=== PATIENT | male | born 1980 | race Caucasian/White ===

== ENCOUNTER 2020-01-29 12:42 | Emergency (ER) | payer MEDICAID ==
[~2020-01-29] VITALS: Ht 177.8 cm; Wt 93.6 kg
[~2020-01-29 12:42] MED LIST: ALPR-624 PO; CYCL5TAB PO; FLUO40CA10 PO; HYDR-4353 PO; IBUP-1985 PO; OXYC-150 PO
--- NOTE | 2020-01-29 12:56 | NUR ---
pt refused blood work till he gets to a room due to him stating he gets sick when he gets blood drawn.
[2020-01-29 13:47] LABS: BASOPHILS % (AUTO) 0.3 % (0-1); EOSINOPHILS # (AUTO) 0.1 X10'3 (0-0.9); EOSINOPHILS % (AUTO) 2.1 % (0-6); HEMOGLOBIN 15.6 g/dl (14.0-17.9); LYMPHOCYTES # (AUTO) 1.2 X10'3 (1.1-4.8); LYMPHOCYTES % (AUTO) 31.1 % (21-51); MEAN CORPUSCULAR HEMOGLOBIN 31.8 PG (27.0-31.0); MEAN CORPUSCULAR HGB CONC 35.5 g/dL (33.0-36.5); MEAN CORPUSCULAR VOLUME 89.6 FL (78-98); MEAN PLATELET VOLUME 7.6 FL (7.4-10.4); MONOCYTES # (AUTO) 0.4 X10'3 (0-0.9); MONOCYTES % (AUTO) 9.1 % (2-12); NEUTROPHILS # (AUTO) 2.3 X10'3 (1.8-7.7); NEUTROPHILS % (AUTO) 57.4 % (42-75); PLATELET COUNT 240 X10'3 (140-440); RED BLOOD COUNT 4.91 X10'6 (4.70-6.10); RED CELL DISTRIBUTION WIDTH 13.3 % (11.5-14.5); WHITE BLOOD COUNT 3.9 X10'3 (4.5-11.0)
[2020-01-29 14:00] LABS: ALANINE AMINOTRANSFERASE 63 U/L (12-78); ALBUMIN 4.2 G/DL (3.4-5.0); ALBUMIN/GLOBULIN RATIO 1.5 (1.1-1.5); ALKALINE PHOSPHATASE 65 IU/L (46-116); ANION GAP 8 (8-16); ASPARTATE AMINO TRANSFERASE 31 U/L (10-37); BILIRUBIN,TOTAL 0.6 MG/DL (0.1-1.0); BLOOD UREA NITROGEN 14 MG/DL (7-18); BUN/CREATININE RATIO 14.1 (5.4-32.0); CALCIUM 8.6 MG/DL (8.5-10.1); CHLORIDE 105 MMOL/L (99-107); CREATININE 0.99 MG/DL (0.60-1.10); GLUCOSE 100 MG/DL (70-104); SODIUM 142 MMOL/L (135-145); TOTAL CARBON DIOXIDE 28.7 MMOL/L (24-32); eGFR 84 ML/MIN
[2020-01-29 14:33] VITALS: BP 149/83
== END 2020-01-29 14:34 | disposition home or self-care (01) ==
LOC: ER 12:43
DX: R07.89 Other chest pain (principal); F41.9 Anxiety disorder, unspecified; G89.29 Other chronic pain; F12.90 Cannabis use, unspecified, uncomplicated; F17.200 Nicotine dependence, unspecified, uncomplicated; Z56.0 Unemployment, unspecified; Z79.899 Other long term (current) drug therapy
CPT/HCPCS: 36415; 71045; 80053; 84484; 85025; 93005; 99285

== ENCOUNTER 2021-10-10 15:49 | Emergency (ER) | payer MEDICAID ==
[~2021-10-10] VITALS: Ht 177.8 cm; Wt 95.5 kg
[2021-10-10 16:05] VITALS: BP 157/105
[2021-10-10] MEDS ORDERED: LIDOcaine 1% 30ml preserv. free vial IJ ONE (20:20)
[2021-10-10] MEDS ORDERED: CEPH-585 PO (21:02)
== END 2021-10-10 21:06 | disposition home or self-care (01) ==
LOC: ER 15:51
DX: S60.012A Contusion of left thumb without damage to nail, initial encounter (principal); M79.645 Pain in left finger(s); G89.29 Other chronic pain; F12.90 Cannabis use, unspecified, uncomplicated; Z56.0 Unemployment, unspecified; Z72.89 Other problems related to lifestyle; Z87.442 Personal history of urinary calculi; Z79.2 Long term (current) use of antibiotics; Z79.899 Other long term (current) drug therapy; W23.1XXA Caught, crushed, jammed, or pinched between stationary objects, initial encounter; Y93.89 Activity, other specified; Y92.59 Other trade areas as the place of occurrence of the external cause; Y99.0 Civilian activity done for income or pay
CPT/HCPCS: 20552; 73140; 99284

== ENCOUNTER 2021-12-14 08:11 | Emergency (ER) | payer MEDICAID ==
[~2021-12-14] VITALS: Ht 177.8 cm; Wt 95.0 kg
[2021-12-14 08:17] VITALS: BP 144/101
--- NOTE | 2021-12-14 11:35 | NUR ---
pt seen walking out of ed, unable to locate in restrooms or lobby. pt did not have arm splint placed. provider made aware.
== END 2021-12-14 12:05 | disposition home or self-care (01) ==
LOC: ER 08:13
DX: M25.522 Pain in left elbow (principal); G89.29 Other chronic pain; F41.9 Anxiety disorder, unspecified; F12.90 Cannabis use, unspecified, uncomplicated; Z87.442 Personal history of urinary calculi; Z98.890 Other specified postprocedural states; Z72.89 Other problems related to lifestyle; Z79.899 Other long term (current) drug therapy
CPT/HCPCS: 29105; 73080; 99283

== ENCOUNTER 2022-08-21 11:42 | Observation (INO) | payer MEDICAID ==
[~2022-08-21] VITALS: Ht 177.8 cm; Wt 94.1 kg
[2022-08-21 12:05] LABS: BASOPHILS % (AUTO) 0.4 % (0-1); EOSINOPHILS # (AUTO) 0.1 X10'3 (0-0.9); EOSINOPHILS % (AUTO) 1.9 % (0-6); HEMATOCRIT 42.7 % (42.0-52.0); HEMOGLOBIN 15.1 g/dl (14.0-17.9); LYMPHOCYTES # (AUTO) 2.6 X10'3 (1.1-4.8); LYMPHOCYTES % (AUTO) 52.1 % (21-51); MEAN CORPUSCULAR HEMOGLOBIN 31.4 PG (27.0-31.0); MEAN CORPUSCULAR HGB CONC 35.4 g/dL (33.0-36.5); MEAN CORPUSCULAR VOLUME 88.6 FL (78-98); MEAN PLATELET VOLUME 7.3 FL (7.4-10.4); MONOCYTES # (AUTO) 0.4 X10'3 (0-0.9); MONOCYTES % (AUTO) 8.4 % (2-12); NEUTROPHILS # (AUTO) 1.9 X10'3 (1.8-7.7); NEUTROPHILS % (AUTO) 37.2 % (42-75); PLATELET COUNT 241 X10'3 (140-440); RED BLOOD COUNT 4.81 X10'6 (4.70-6.10); RED CELL DISTRIBUTION WIDTH 13.1 % (11.5-14.5); WHITE BLOOD COUNT 5.1 X10'3 (4.5-11.0)
[2022-08-21 12:13] LABS: ALANINE AMINOTRANSFERASE 72 U/L (12-78); ALBUMIN 4.2 G/DL (3.4-5.0); ALBUMIN/GLOBULIN RATIO 1.4 (1.1-1.5); ALKALINE PHOSPHATASE 70 IU/L (46-116); ANION GAP 10 (8-16); ASPARTATE AMINO TRANSFERASE 34 U/L (10-37); BILIRUBIN,TOTAL 0.8 MG/DL (0.1-1.0); BLOOD UREA NITROGEN 14 MG/DL (7-18); BUN/CREATININE RATIO 15.7 (5.4-32.0); CALCIUM 9.2 MG/DL (8.5-10.1); CHLORIDE 101 MMOL/L (99-107); CREATININE 0.89 MG/DL (0.60-1.10); GLUCOSE 154 MG/DL (70-104); POTASSIUM 3.6 MMOL/L (3.5-5.1); SODIUM 138 MMOL/L (135-145); TOTAL CARBON DIOXIDE 26.6 MMOL/L (24-32); TOTAL PROTEIN 7.1 G/DL (6.4-8.2); eGFR > 90 ML/MIN
[2022-08-21 13:22] LABS: TOTAL CELLS COUNTED 100
[2022-08-21 13:25] LABS: PLATELET ESTIMATE NORMAL
[2022-08-21] MEDS ORDERED: magnesium 4gm in 100ml NS 100 ML IV PRN (13:35)
[2022-08-21] MEDS ORDERED: acetaminophen 325mg tablet PO PRN (13:35)
[2022-08-21] MEDS ORDERED: nitroGLYCERIN 0.4mg SUBLingual tab SL PRN (13:35)
[2022-08-21] MEDS ORDERED: ondansetron/PF 4mg/2ml inj IV PRN (13:35)
[2022-08-21] MEDS ORDERED: potassium Cl 40MEQ/1/2NS 520ml 520 ML IV PRN (13:35)
[2022-08-21] MEDS ORDERED: normal saline 1000ml 1,000 ML IV SCH (13:35)
[2022-08-21] MEDS ORDERED: mag hydrox/Alum hydrox/simeth 30ml oral suspension PO PRN (13:35)
[2022-08-21] MEDS ORDERED: PERFLUTREN PROTEIN-A MICROSPHR (Optison) 0.22 MG/ML 3ML VIAL IV ONE (13:35)
[2022-08-21] MEDS ORDERED: magnesium hydroxide 30ml (MOM) UD suspension PO PRN (13:35)
[2022-08-21] MEDS ORDERED: potassium Cl 20 mEq SR tablet PO PRN ×2 (13:35)
[2022-08-21] MEDS ORDERED: magnesium Cl slow-release 64mg tablet PO PRN (13:35)
[2022-08-21] MEDS ORDERED: regadenoson 0.4mg/5ml syringe IV PRN (13:35)
[2022-08-21] MEDS ORDERED: morphine 2 MG/ML inj. syringe IV PRN ×2 (13:35)
[2022-08-21] MEDS ORDERED: metoprolol tartrate 1mg/ml inj IV PRN (13:35)
[2022-08-21] MEDS ORDERED: aminophylline 500mg/20ml vial IV PRN (13:35)
--- NOTE | 2022-08-21 14:24 | NUR ---
PT is stable and able to nuclear med. VSS. No s/s of distress
[2022-08-21 14:25] LABS: MAGNESIUM 1.8 MG/DL (1.5-2.4); POTASSIUM 3.6 MMOL/L (3.5-5.1)
[2022-08-21 16:00] VITALS: BP 130/84
[2022-08-21] MEDS ORDERED: CLOT30CR19 TOP (17:22)
[2022-08-21] MEDS ORDERED: ESCI20TA39 PO (17:23)
[2022-08-21] MEDS ORDERED: METF-1203 PO (17:23)
[2022-08-21] MEDS ORDERED: MULT-1085 PO (17:26)
[2022-08-21] MEDS ORDERED: ASPI-147 PO (17:27)
[2022-08-21] MEDS ORDERED: docusate sod 100mg capsule PO SCH (20:00)
[2022-08-21] MEDS ORDERED: K and/or MAG REPLACEMENT MC SCH (20:00)
[2022-08-21] MEDS ORDERED: enoxaparin 30mg/0.3ml syringe SQ SCH (20:00)
== END 2022-08-21 17:14 | disposition left against medical advice (07) ==
LOC: ER 11:42 → ED HOLD 13:35
PROVIDERS: ADMIT Family Medicine; ATTEND Family Medicine
DX: R07.89 Other chest pain (principal); E11.9 Type 2 diabetes mellitus without complications; E78.5 Hyperlipidemia, unspecified; E78.00 Pure hypercholesterolemia, unspecified; Z87.442 Personal history of urinary calculi; Z79.899 Other long term (current) drug therapy
CPT/HCPCS: 36415; 71045; 78451; 80053; 83735; 83880; 84132; 84484; 85025; 93005; 93306; 96360; 96361; 99285; A9500; G0378; J7030; 85007

== ENCOUNTER 2022-10-07 05:55 | Emergency (ER) | payer MEDICAID ==
[~2022-10-07] VITALS: Ht 177.8 cm; Wt 94.1 kg
[~2022-10-07 05:55] MED LIST changes: +ASPI-147 PO; +CLOT30CR19 TOP; +ESCI20TA39 PO; -FLUO40CA10 PO; -IBUP-1985 PO; +METF-1203 PO; +MULT-1085 PO; -OXYC-150 PO
[2022-10-07] MEDS ORDERED: ibuprofen 200mg tablet PO ONE (06:55)
[2022-10-07] MEDS ORDERED: ipratropium/albuterol 3ml nebule NEB ONE (06:55)
[2022-10-07] MEDS ORDERED: normal saline 1000ML IV soln IVB ONE (06:55)
[2022-10-07] MEDS ORDERED: benzonatate 100mg capsule PO ONE (06:55)
[2022-10-07 08:13] LABS: ALANINE AMINOTRANSFERASE 29 U/L (12-78); ALBUMIN 3.8 G/DL (3.4-5.0); ALBUMIN/GLOBULIN RATIO 1.2 (1.1-1.5); ALKALINE PHOSPHATASE 80 IU/L (46-116); ANION GAP 8 (8-16); ASPARTATE AMINO TRANSFERASE 21 U/L (10-37); BILIRUBIN,TOTAL 0.7 MG/DL (0.1-1.0); BLOOD UREA NITROGEN 11 MG/DL (7-18); BUN/CREATININE RATIO 12.2 (5.4-32.0); CALCIUM 8.6 MG/DL (8.5-10.1); CHLORIDE 100 MMOL/L (99-107); GLUCOSE 173 MG/DL (70-104); POTASSIUM 3.7 MMOL/L (3.5-5.1); SODIUM 136 MMOL/L (135-145); TOTAL CARBON DIOXIDE 27.8 MMOL/L (24-32); eGFR > 90 ML/MIN
[2022-10-07 08:30] LABS: BASOPHILS % (AUTO) 0.1 % (0-1); EOSINOPHILS # (AUTO) 0.1 X10'3 (0-0.9); EOSINOPHILS % (AUTO) 0.9 % (0-6); HEMATOCRIT 37.9 % (42.0-52.0); HEMOGLOBIN 13.5 g/dl (14.0-17.9); LYMPHOCYTES % (AUTO) 21.7 % (21-51); MEAN CORPUSCULAR HEMOGLOBIN 31.6 PG (27.0-31.0); MEAN CORPUSCULAR HGB CONC 35.7 g/dL (33.0-36.5); MEAN CORPUSCULAR VOLUME 88.5 FL (78-98); MEAN PLATELET VOLUME 7.3 FL (7.4-10.4); MONOCYTES # (AUTO) 0.9 X10'3 (0-0.9); MONOCYTES % (AUTO) 9.6 % (2-12); NEUTROPHILS # (AUTO) 6.2 X10'3 (1.8-7.7); NEUTROPHILS % (AUTO) 67.7 % (42-75); PLATELET COUNT 259 X10'3 (140-440); RED BLOOD COUNT 4.28 X10'6 (4.70-6.10); RED CELL DISTRIBUTION WIDTH 12.7 % (11.5-14.5); WHITE BLOOD COUNT 9.2 X10'3 (4.5-11.0)
[2022-10-07 09:05] VITALS: BP 116/60
[2022-10-07] MEDS ORDERED: azithromycin 250mg tablet PO ONE (10:25)
[2022-10-07] MEDS ORDERED: AZIT-83 PO (10:27)
[2022-10-07] MEDS ORDERED: BENZ-38 PO (10:27)
[2022-10-07] MEDS ORDERED: ACET-3068 PO (10:27)
[2022-10-07] MEDS ORDERED: ALBU18HF2 INH (10:30)
[2022-10-07] MEDS ORDERED: INHA1EAC9 (10:30)
== END 2022-10-07 10:52 | disposition home or self-care (01) ==
LOC: ER 05:56
DX: J06.9 Acute upper respiratory infection, unspecified (principal); Z20.822 Contact with and (suspected) exposure to COVID-19; E78.00 Pure hypercholesterolemia, unspecified; M54.9 Dorsalgia, unspecified; E11.9 Type 2 diabetes mellitus without complications; G89.29 Other chronic pain; F17.200 Nicotine dependence, unspecified, uncomplicated; F12.10 Cannabis abuse, uncomplicated; Z79.899 Other long term (current) drug therapy; Z79.84 Long term (current) use of oral hypoglycemic drugs
CPT/HCPCS: 36415; 71046; 80053; 83605; 85025; 87040; 87070; 87502; 87503; 87635; 94640; 99284; C9803; J7030

== ENCOUNTER 2023-02-05 11:47 | Outpatient (CLI) | payer MEDICAID ==
[2023-01-31 10:47] LABS: BASOPHILS % (AUTO) 0.4 % (0-1); EOSINOPHILS # (AUTO) 0.1 X10'3 (0-0.9); EOSINOPHILS % (AUTO) 2.9 % (0-6); HEMATOCRIT 44.5 % (42.0-52.0); HEMOGLOBIN 15.8 g/dl (14.0-17.9); LYMPHOCYTES % (AUTO) 44.6 % (21-51); MEAN CORPUSCULAR HGB CONC 35.4 g/dL (33.0-36.5); MEAN CORPUSCULAR VOLUME 87.7 FL (78-98); MEAN PLATELET VOLUME 7.4 FL (7.4-10.4); MONOCYTES # (AUTO) 0.4 X10'3 (0-0.9); MONOCYTES % (AUTO) 8.4 % (2-12); NEUTROPHILS % (AUTO) 43.7 % (42-75); PLATELET COUNT 241 X10'3 (140-440); RED BLOOD COUNT 5.08 X10'6 (4.70-6.10); RED CELL DISTRIBUTION WIDTH 13.2 % (11.5-14.5); WHITE BLOOD COUNT 4.5 X10'3 (4.5-11.0)
[2023-01-31 10:51] LABS: APTT 26 SECONDS (22-32)
[2023-01-31 10:55] LABS: ALBUMIN 4.2 G/DL (3.4-5.0); ANION GAP 9 (8-16); BLOOD UREA NITROGEN 15 MG/DL (7-18); BUN/CREATININE RATIO 17.6 (10.0-20.0); CALCIUM 8.9 MG/DL (8.5-10.1); CHLORIDE 101 MMOL/L (99-107); CHOL/HDL RATIO 4.4 (0.00-4.99); CHOLESTEROL 129 MG/DL (0-200); CREATININE 0.85 MG/DL (0.60-1.10); GLUCOSE 156 MG/DL (70-104); HDL CHOLESTEROL 29 MG/DL (35-60); LDL CHOLESTEROL 37 MG/DL (50-100); POTASSIUM 4.2 MMOL/L (3.5-5.1); SODIUM 138 MMOL/L (135-145); TOTAL CARBON DIOXIDE 27.7 MMOL/L (24-32); TRIGLYCERIDES 607 MG/DL (20-135); eGFR > 90 ML/MIN
[~2023-02-05 11:47] MED LIST changes: +ALBU18HF2 INH; +INHA1EAC9
== END 2023-02-05 23:59 | disposition home or self-care (01) ==
LOC: LAB 11:47
PROVIDERS: ATTEND Student in an Organized Health Care Education/Training Program
DX: E78.5 Hyperlipidemia, unspecified (principal); Z79.01 Long term (current) use of anticoagulants
CPT/HCPCS: 36415; 80048; 80061; 85025; 85610; 85730

== ENCOUNTER 2023-03-08 09:10 | Emergency (ER) | payer MEDICAID ==
[~2023-03-08] VITALS: Ht 177.8 cm; Wt 93.8 kg
[2023-03-08] MEDS ORDERED: ketorolac tromethamine 15mg/ml inj. IM ONE (10:10)
[2023-03-08 10:29] VITALS: BP 132/91
== END 2023-03-08 10:37 | disposition home or self-care (01) ==
LOC: ER 09:11
DX: M25.521 Pain in right elbow (principal); E78.00 Pure hypercholesterolemia, unspecified; G89.29 Other chronic pain; M54.9 Dorsalgia, unspecified; E11.9 Type 2 diabetes mellitus without complications; F12.10 Cannabis abuse, uncomplicated; Z79.899 Other long term (current) drug therapy; W19.XXXA Unspecified fall, initial encounter; Y93.89 Activity, other specified; Y92.89 Other specified places as the place of occurrence of the external cause; Y99.8 Other external cause status
CPT/HCPCS: 73080; 73090; 96372; 99284; J1885; A6449

== ENCOUNTER 2023-07-15 12:10 | Day surgery (SDC) | payer MEDICAID ==
[2023-07-11 09:01] LABS: BASOPHILS % (AUTO) 0.3 % (0-1); EOSINOPHILS # (AUTO) 0.2 X10'3 (0-0.9); EOSINOPHILS % (AUTO) 3.2 % (0-6); HEMATOCRIT 43.2 % (42.0-52.0); HEMOGLOBIN 15.2 g/dl (14.0-17.9); LYMPHOCYTES % (AUTO) 40.3 % (21-51); MEAN CORPUSCULAR HEMOGLOBIN 31.2 PG (27.0-31.0); MEAN CORPUSCULAR HGB CONC 35.1 g/dL (33.0-36.5); MEAN PLATELET VOLUME 7.4 FL (7.4-10.4); MONOCYTES # (AUTO) 0.5 X10'3 (0-0.9); MONOCYTES % (AUTO) 9.3 % (2-12); NEUTROPHILS # (AUTO) 2.3 X10'3 (1.8-7.7); NEUTROPHILS % (AUTO) 46.9 % (42-75); PLATELET COUNT 242 X10'3 (140-440); RED BLOOD COUNT 4.86 X10'6 (4.70-6.10); RED CELL DISTRIBUTION WIDTH 13.5 % (11.5-14.5); WHITE BLOOD COUNT 4.9 X10'3 (4.5-11.0)
[2023-07-11 09:15] LABS: ALBUMIN 4.1 G/DL (3.4-5.0); ANION GAP 7 (8-16); APTT 25 SECONDS (22-32); BLOOD UREA NITROGEN 15 MG/DL (7-18); BUN/CREATININE RATIO 15.3 (10.0-20.0); CHLORIDE 100 MMOL/L (99-107); CHOL/HDL RATIO 4.9 (0.00-4.99); CHOLESTEROL 141 MG/DL (0-200); CREATININE 0.98 MG/DL (0.60-1.10); GLUCOSE 200 MG/DL (70-104); HDL CHOLESTEROL 29 MG/DL (35-60); LDL CHOLESTEROL 40 MG/DL (50-100); POTASSIUM 4.3 MMOL/L (3.5-5.1); PROTHROMBIN TIME 10.3 SECONDS (9.0-12.0); SODIUM 136 MMOL/L (135-145); TOTAL CARBON DIOXIDE 28.8 MMOL/L (24-32); TRIGLYCERIDES 674 MG/DL (20-135); eGFR 84 ML/MIN
[2023-07-15] VITALS (10 sets, daily range): BP systolic 102–139; BP diastolic 57–91; PULSE 64–80; RESP 14–16; TEMP 98; O2SAT 92–96
[~2023-07-15] VITALS: Ht 177.8 cm; Wt 93.9 kg
[2023-07-15] MEDS ORDERED: DULA0.75 SQ (12:37)
[2023-07-15] MEDS ORDERED: ATOR20TA66 PO (12:37)
[2023-07-15] MEDS ORDERED: normal saline 1,000 ML IV SCH (12:40)
[2023-07-15] MEDS ORDERED: LORazepam 0.5 MG tablet PO PRN (12:40)
[2023-07-15] MEDS ORDERED: diphenhydrAMINE 25mg capsule PO PRN (12:40)
[2023-07-15] MEDS ORDERED: midazolam 1 mg/ML 2ml injection ONE ×2 (14:44→15:55)
[2023-07-15] MEDS ORDERED: verapamil 2.5 mg/ml inj IV ONE (14:44)
[2023-07-15] MEDS ORDERED: fentaNYL/PF 50MCG/1 ML 2ML syringe ONE (14:44)
[2023-07-15] MEDS ORDERED: LIDOcaine 1% (10mg/ml) 2ml vial ONE (14:44)
[2023-07-15] MEDS ORDERED: heparin 1,000unit/ml 10ml vial 10 ML ONE (14:45)
[2023-07-15] MEDS ORDERED: iohexol 350MG/ML 100ml bottle IV ONE (14:45)
[2023-07-15] MEDS ORDERED: nitroGLYCERIN 500mcg/5mL D5W 5 ML IV ONE (14:47)
[2023-07-15] MEDS ORDERED: iohexol 350 MG/ML 50ML vial IV ONE (16:06)
[2023-07-15] MEDS ORDERED: HYDROcodone/acetaminophen 10/325mg tab PO PRN (16:50)
[2023-07-15] MEDS ORDERED: HYDROcodone/acetaminophen 5mg/325mg tablet PO PRN (16:50)
== END 2023-07-15 23:59 | disposition home or self-care (01) ==
LOC: SSTAY O 12:10 → EDSTATUS 16:30 → SSTAY O 23:59
PROVIDERS: ATTEND Student in an Organized Health Care Education/Training Program
DX: R07.89 Other chest pain (principal); E11.9 Type 2 diabetes mellitus without complications; E78.5 Hyperlipidemia, unspecified; I10 Essential (primary) hypertension; Z79.899 Other long term (current) drug therapy; Z79.84 Long term (current) use of oral hypoglycemic drugs
CPT/HCPCS: 36415; 80048; 80061; 85025; 85610; 85730; 93005; 93458; 99152; J1644; J2250; J3010; J3490; J7030; Q0163; Q9967; 99153; A6258; A6449; C1894

== ENCOUNTER 2024-03-11 10:48 | Emergency (ER) | payer MEDICAID ==
[~2024-03-11] VITALS: Ht 177.8 cm; Wt 93.2 kg
[~2024-03-11 10:48] MED LIST changes: -ALBU18HF2 INH; +ATOR20TA66 PO; -CLOT30CR19 TOP; +DULA0.75 SQ; -INHA1EAC9; -MULT-1085 PO
[2024-03-11 11:22] VITALS: BP 151/94; PULSE 72; TEMP 98.3; O2SAT 95
[2024-03-11 12:56] VITALS: RESP 18
== END 2024-03-11 13:30 | disposition home or self-care (01) ==
LOC: ER 10:49
DX: S00.83XA Contusion of other part of head, initial encounter (principal); G43.909 Migraine, unspecified, not intractable, without status migrainosus; E78.00 Pure hypercholesterolemia, unspecified; E11.9 Type 2 diabetes mellitus without complications; G89.29 Other chronic pain; M54.9 Dorsalgia, unspecified; F41.9 Anxiety disorder, unspecified; F12.90 Cannabis use, unspecified, uncomplicated; Z72.89 Other problems related to lifestyle; Z79.84 Long term (current) use of oral hypoglycemic drugs; Z79.899 Other long term (current) drug therapy; X58.XXXA Exposure to other specified factors, initial encounter; Y93.89 Activity, other specified; Y92.89 Other specified places as the place of occurrence of the external cause; Y99.8 Other external cause status
CPT/HCPCS: 70450; 99284

== ENCOUNTER 2024-03-17 09:31 | Emergency (ER) | payer MEDICAID ==
[~2024-03-17] VITALS: Ht 177.8 cm; Wt 93.8 kg
[~2024-03-17 09:31] MED LIST changes: -CYCL5TAB PO; -DULA0.75 SQ
[2024-03-17 09:44] VITALS: BP 156/97; PULSE 78; RESP 18; TEMP 97.8; O2SAT 96
== END 2024-03-17 13:55 | disposition left against medical advice (07) ==
LOC: ER 09:32
DX: G43.909 Migraine, unspecified, not intractable, without status migrainosus (principal); R11.0 Nausea; R55 Syncope and collapse; Z53.21 Procedure and treatment not carried out due to patient leaving prior to being seen by health care provider

== ENCOUNTER 2024-04-20 10:05 | Emergency (ER) | payer MEDICAID ==
[~2024-04-20] VITALS: Ht 177.8 cm; Wt 94.5 kg
[2024-04-20 10:16] VITALS: TEMP 98
[2024-04-20] MEDS: ketorolac tromethamine 15mg/ml inj. IM ONE (11:12)
[2024-04-20] MEDS: orphenadrine citrate 60mg/2ml inj. IM ONE (11:12)
[2024-04-20] MEDS: LIDOcaine 5% patch TP SCH (11:13)
[2024-04-20] MEDS ORDERED: PRED20TA PO (12:48)
[2024-04-20] MEDS ORDERED: CYCL-1 PO (12:48)
[2024-04-20] MEDS ORDERED: LIDO700A32 TD (12:48)
[2024-04-20] MEDS: predniSONE 20 mg tablet PO ONE (12:57)
[2024-04-20 12:58] VITALS: BP 146/99; PULSE 55; RESP 18; O2SAT 98
== END 2024-04-20 12:59 | disposition home or self-care (01) ==
LOC: ER 10:06
DX: G89.29 Other chronic pain (principal); M54.50 Low back pain, unspecified; F12.90 Cannabis use, unspecified, uncomplicated; E78.00 Pure hypercholesterolemia, unspecified; E11.9 Type 2 diabetes mellitus without complications; F41.9 Anxiety disorder, unspecified; Z98.890 Other specified postprocedural states; Z72.89 Other problems related to lifestyle; Z79.899 Other long term (current) drug therapy; Z79.84 Long term (current) use of oral hypoglycemic drugs; Z87.442 Personal history of urinary calculi
CPT/HCPCS: 72131; 96372; 99285; J1885; J2360; J7512

== ENCOUNTER 2024-06-15 09:49 | Outpatient (CLI) | payer MEDICAID ==
[~2024-06-15 09:49] MED LIST changes: +CYCL-1 PO; +LIDO700A32 TD
[2024-06-15] MEDS ORDERED: iohexol 350MG/ML 100ml bottle IV ONE (09:58)
[2024-06-15 10:43] LABS: ALBUMIN 4.5 G/DL (3.4-5.0); ANION GAP 9 (8-16); BLOOD UREA NITROGEN 15 MG/DL (7-18); BUN/CREATININE RATIO 14.2 (10.0-20.0); CALCIUM 9.3 MG/DL (8.5-10.1); CHLORIDE 101 MMOL/L (99-107); CREATININE 1.06 MG/DL (0.60-1.10); GLUCOSE 171 MG/DL (70-104); POTASSIUM 3.6 MMOL/L (3.5-5.1); SODIUM 139 MMOL/L (135-145); TOTAL CARBON DIOXIDE 29.1 MMOL/L (24-32); eGFR 76 ML/MIN
== END 2024-06-15 23:59 | disposition home or self-care (01) ==
LOC: 64 CT 09:49
PROVIDERS: ATTEND Student in an Organized Health Care Education/Training Program
DX: S09.90XD Unspecified injury of head, subsequent encounter (principal); X58.XXXD Exposure to other specified factors, subsequent encounter
CPT/HCPCS: 36415; 70496; 80048; Q9967

== ENCOUNTER 2025-08-29 15:25 | Emergency (ER) | payer MEDICAID ==
[~2025-08-29] VITALS: Ht 177.8 cm; Wt 97.2 kg
[~2025-08-29 15:25] MED LIST changes: +LIDO-52 TD; -LIDO700A32 TD
[2025-08-29 15:32] VITALS: BP 147/106; PULSE 96; RESP 18; TEMP 98.3; O2SAT 95
== END 2025-08-29 16:51 | disposition left against medical advice (07) ==
LOC: ER 15:26
DX: M25.529 Pain in unspecified elbow (principal); Z53.21 Procedure and treatment not carried out due to patient leaving prior to being seen by health care provider
CPT/HCPCS: 99281